=== PATIENT | male | born 1970 | race Caucasian/White ===

== ENCOUNTER → 2022-12-02 | Outpatient (CLI) | payer OTHER ==
--- NOTE | 2022-12-02 11:55 | MR ---
EXAMINATION TYPE: MR shoulder LT wo con DATE OF EXAM: 12/02/2022 COMPARISON: None HISTORY: Left shoulder pain TECHNIQUE: Multiplanar, multisequence imaging of the left shoulder is performed without contrast. FINDINGS: There is atrophy of the supraspinatus and infraspinatus muscles. There is a near-complete through thi ckness tear of the supraspinatus tendon with minimal residual in the edematous fibers along the anter ior margin of the insertion. There appears to be complete through thickness tear of the infraspinatus tendon. Subscapularis appears intact. Biceps tendon is poorly visualized within the bicipital groove but appears to be intact with a normal insertion at the level of the anchor. There is increased fluid surrounding the bicipital tendon comp atible with tendinosis. There is a small glenohumeral joint effusion. Grossly the inferior glenohumeral ligament is intact. Bony labrum intact by non arthrogram technique. There is marked hypertrophic changes and narrowing of the AC joint which results in impingement of th e rotator cuff. Reactive marrow edema is seen within the acromion and clavicle at the level of the A C joint. Suprascapular Notch has a normal appearance. Reactive marrow edema is seen within the acromion and cl avicle at the level of the AC joint. There is slight flattening of the humeral head posteriorly which can be associated with prior dislocation. Correlate for prior trauma. IMPRESSION: 1. Compleat through thickness tear with retraction of infraspinatus tendon 2. Near-complete through thickness tear supraspinatus tendon with minimal edematous anterior fibers a t the insertion. 3. Bicipital tendinosis. 4. Severe AC joint arthropathy with hypertrophic spurring and impingement. 5. Chronic appearing deformity\flattening of the posterior superior humeral head can be associated wi th a Hill-Sachs deformity and prior dislocation. Correlate clinically. 6 note is made that there is a trophic changes involving both the supraspinatus and infraspinatus musculature.
== END | disposition home or self-care (01) ==
LOC: RADMRIMAIN 10:27
PROVIDERS: ATTEND Orthopaedic Surgery
DX: M75.112 Incomplete rotator cuff tear or rupture of left shoulder, not specified as traumatic (principal); M67.814 Other specified disorders of tendon, left shoulder; M25.812 Other specified joint disorders, left shoulder